=== PATIENT | male | born 1995 | race Caucasian/White ===

== ENCOUNTER 2021-02-05 08:26 | Emergency (ER) | payer SELFPAY ==
[2021-02-05] MEDS ORDERED: Ketorolac 30 MG/ML SDV IVPUSH ONE (08:46)
--- NOTE | 2021-02-05 08:51 | EDM.PDOC ---
ED HPI GENERAL MEDICAL PROBLEM - General Chief Complaint: Genitourinary Problem Stated Complaint: UNKNOWN Time Seen by Provider: 02/05/21 08:47 Source of Information: Reports: Patient History Limitations: Reports: No Limitations - History of Present Illness INITIAL COMMENTS - FREE TEXT/NARRATIVE: Patient is a 25-year-old male who presents today for testicular pain. Patient received urgent care and was sent here because he told he may have testicular torsion. Patient says he woke up this morning with intense pain in his left testicle. Patient denied any injuries or trauma to his abdomen or testicle. Patient has not been sexually active for the past month. Patient has before this he was only active with 1 person and not use protection. Patient denies any discharge from his penis. Patient denies any swelling or redness. Patient denies any nausea vomiting or other complaints. retention Pain Score (Numeric/FACES): 9 - Related Data Allergies Allergy/AdvReac Type Severity Reaction Status Date / Time No Known Allergies Allergy Verified 02/05/21 08:29 Home Meds: Home Meds . [No Known Home Meds] 02/05/21 [History] Past Medical History - Past Health History Medical/Surgical History: Denies Medical/Surgical History - Infectious Disease History Infectious Disease History: Reports: None Social & Family History - Family History Family Medical History: No Pertinent Family History - Tobacco Use Tobacco Use Status *Q: Current Every Day Tobacco User Years of Tobacco use: 10 Packs/Tins Daily: 1.5 - Recreational Drug Use Recreational Drug Use: No ED ROS GENERAL - Review of Systems Review Of Systems: See Below Constitutional: Reports: No Symptoms HEENT: Reports: No Symptoms Respiratory: Reports: No Symptoms Cardiovascular: Reports: No Symptoms Endocrine: Reports: No Symptoms GI/Abdominal: Reports: No Symptoms : Reports: Pain Musculoskeletal: Reports: No Symptoms Skin: Reports: No Symptoms Neurological: Reports: No Symptoms Psychiatric: Reports: No Symptoms Hematologic/Lymphatic: Reports: No Symptoms Immunologic: Reports: No Symptoms ED EXAM, RENAL/ - Physical Exam Exam: See Below Exam Limited By: No Limitations General Appearance: Alert, WD/WN Respiratory/Chest: No Respiratory Distress, Lungs Clear Cardiovascular: Normal Peripheral Pulses, Regular Rate, Rhythm GI/Abdominal: Normal Bowel Sounds, Soft, Non-Tender (Male) Exam: No Hernia, Testicular Tenderness (L). No: Scrotal Swelling, Testicular Mass, Testicular Tenderness (R) Extremities: Normal Inspection Neurological: Alert, Oriented, Normal Cognition, Normal Gait Course - Vital Signs Last Recorded V/S: Last Vital Signs Temp 97.6 F 02/05/21 08:30 Pulse 87 02/05/21 10:34 Resp 17 02/05/21 10:34 BP 142/74 H 02/05/21 10:34 Pulse Ox 100 02/05/21 10:34 - Orders/Labs/Meds Orders: Active Orders 24 hr Category Date Time Status Retroperitoneal Ltd [US] Stat Exams 02/05/21 09:09 Taken Scrotum and Contents [US] Stat Exams 02/05/21 09:20 Taken CHLAMYDIA AND GONORRHEA BY TMA Stat Lab 02/05/21 08:35 Received Labs: Laboratory Tests 02/05/21 02/05/21 02/05/21 Range/Units 08:30 08:30 09:07 WBC 7.43 (4.0-11.0) K/uL RBC 5.26 (4.50-5.90) M/uL Hgb 15.9 (13.0-17.0) g/dL Hct 46.6 (38.0-50.0) % MCV 88.6 (80.0-98.0) fL MCH 30.2 (27.0-32.0) pg MCHC 34.1 (31.0-37.0) g/dL RDW Std Deviation 42.8 (28.0-62.0) fl RDW Coeff of Kathia 13 (11.0-15.0) % Plt Count 259 (150-400) K/uL MPV 10.30 (7.40-12.00) fL Neut % (Auto) 52.3 (48.0-80.0) % Lymph % (Auto) 39.2 (16.0-40.0) % [place] % (Auto) 6.7 (0.0-15.0) % Eos % (Auto) 1.5 (0.0-7.0) % Baso % (Auto) 0.3 (0.0-1.5) % Neut # (Auto) 3.9 (1.4-5.7) K/uL Lymph # (Auto) 2.9 H (0.6-2.4) K/uL [place] # (Auto) 0.5 (0.0-0.8) K/uL Eos # (Auto) 0.1 (0.0-0.7) K/uL Baso # (Auto) 0.0 (0.0-0.1) K/uL Nucleated RBC % 0.0 /100WBC Nucleated RBCs # 0 K/uL Lactate 1.2 (0.20-2.00) mmol/L Sodium 140 (136-148) mmol/L Potassium 4.1 (3.5-5.1) mmol/L Chloride 103 (98-107) mmol/L Carbon Dioxide 28.7 (21.0-32.0) mmol/L BUN 15 (7.0-18.0) mg/dL Creatinine 1.6 H (0.8-1.3) mg/dL Est Cr Clr Drug Dosing 69.96 mL/min Estimated GFR (MDRD) 52.5 ml/min Glucose 134 H (74-106) mg/dL Calcium 9.3 (8.5-10.1) mg/dL Urine Color Urine Appearance Urine pH (5.0-8.0) Ur Specific Laura (1.001-1.035) Urine Protein (NEGATIVE) mg/dL Urine Glucose (UA) (NEGATIVE) mg/dL Urine Ketones (NEGATIVE) mg/dL Urine Occult Blood (NEGATIVE) Urine Nitrite (NEGATIVE) Urine Bilirubin (NEGATIVE) Urine Urobilinogen (<2.0) EU/dL Ur Leukocyte Esterase (NEGATIVE) Urine RBC (0-2/HPF) Urine WBC (0-5/HPF) Ur Epithelial Cells (NONE-FEW) Urine Bacteria (NEGATIVE) Urine Mucus (NONE-MOD) 02/05/21 Range/Units 10:26 WBC (4.0-11.0) K/uL RBC (4.50-5.90) M/uL Hgb (13.0-17.0) g/dL Hct (38.0-50.0) % MCV (80.0-98.0) fL MCH (27.0-32.0) pg MCHC (31.0-37.0) g/dL RDW Std Deviation (28.0-62.0) fl RDW Coeff of Kathia (11.0-15.0) % Plt Count (150-400) K/uL MPV (7.40-12.00) fL Neut % (Auto) (48.0-80.0) % Lymph % (Auto) (16.0-40.0) % [place] % (Auto) (0.0-15.0) % Eos % (Auto) (0.0-7.0) % Baso % (Auto) (0.0-1.5) % Neut # (Auto) (1.4-5.7) K/uL Lymph # (Auto) (0.6-2.4) K/uL [place] # (Auto) (0.0-0.8) K/uL Eos # (Auto) (0.0-0.7) K/uL Baso # (Auto) (0.0-0.1) K/uL Nucleated RBC % /100WBC Nucleated RBCs # K/uL Lactate (0.20-2.00) mmol/L Sodium (136-148) mmol/L Potassium (3.5-5.1) mmol/L Chloride (98-107) mmol/L Carbon Dioxide (21.0-32.0) mmol/L BUN (7.0-18.0) mg/dL Creatinine (0.8-1.3) mg/dL Est Cr Clr Drug Dosing mL/min Estimated GFR (MDRD) ml/min Glucose (74-106) mg/dL Calcium (8.5-10.1) mg/dL Urine Color MERARI Urine Appearance CLOUDY Urine pH 6.5 (5.0-8.0) Ur Specific Laura 1.025 (1.001-1.035) Urine Protein 100 H (NEGATIVE) mg/dL Urine Glucose (UA) NEGATIVE (NEGATIVE) mg/dL Urine Ketones TRACE H (NEGATIVE) mg/dL Urine Occult Blood LARGE H (NEGATIVE) Urine Nitrite NEGATIVE (NEGATIVE) Urine Bilirubin SMALL H (NEGATIVE) Urine Urobilinogen 1.0 (<2.0) EU/dL Ur Leukocyte Esterase TRACE H (NEGATIVE) Urine RBC 80-90 (0-2/HPF) Urine WBC 5-10 (0-5/HPF) Ur Epithelial Cells FEW (NONE-FEW) Urine Bacteria FEW (NEGATIVE) Urine Mucus LIGHT (NONE-MOD) Meds: Medications Discontinued Medications Generic Name Dose Route Start Last Admin Trade Name Freq PRN Reason Stop Dose Admin Ketorolac Tromethamine 30 mg 02/05/21 08:46 02/05/21 08:58 Ketorolac 30 Mg/Ml Sdv IVPUSH 02/05/21 08:47 30 mg ONETIME ONE Administration - Re-Assessments/Exams Free Text/Narrative Re-Assessment/Exam: 02/05/21 11:40 Patient likely had a kidney stone in the past patient pain is resolved is tolerating p.o. patient some hydro on the left of the ultrasound. Patient creatinine 1.6 we will continue to hydrate patient have patient follow-up with urology as outpatient. Departure - Departure Time of Disposition: 11:41 Disposition: Home, Self-Care 01 Condition: Good Clinical Impression: Kidney stone - Discharge Information *PRESCRIPTION DRUG MONITORING PROGRAM REVIEWED*: Not Applicable *COPY OF PRESCRIPTION DRUG MONITORING REPORT IN PATIENT RICHARD: Not Applicable Instructions: Kidney Stones, [id number] Forms: ED Department Discharge Additional Instructions: The following information is given to patients seen in the emergency department who are being discharged to home. This information is to outline your options for follow-up care. We provide all patients seen in our emergency department with a follow-up referral. The need for follow-up, as well as the timing and circumstances, are variable depending upon the specifics of your emergency department visit. If you don't have a primary care physician on staff, we will provide you with a referral. We always advise you to contact your personal physician following an emergency department visit to inform them of the circumstance of the visit and for follow-up with them and/or the need for any referrals to a consulting spec ialist. The emergency department will also refer you to a specialist when appropriate. This referral assures that you have the opportunity for follow-up care with a specialist. All of these measure are taken in an effort to provide you with optimal care, which includes your follow-up. Under all circumstances we always encourage you to contact your private physician who remains a resource for coordinating your care. When calling for follow-up care, please make the office aware that this follow-up is from your recent emergency room visit. If for any reason you are refused follow-up, please contact the [facility] Emergency Department at and asked to speak to the emergency department charge nurse. Please follow up with your primary care physician. If you do not have a primary care physician, see below: [facility] - Urology [address] [place] [id number] Please follow-up with urology as outpatient for your kidney stones. If you have any increased blood in your urine difficulty urinating or increased pain please return to the ED immediately. Sepsis Event Note (ED) - Evaluation Sepsis Screening Result: No Definite Risk - Focused Exam Vital Signs: Vital Signs Temp Pulse Resp BP Pulse Ox 02/05/21 10:34 87 17 142/74 H 100 02/05/21 10:04 81 18 139/76 99 02/05/21 08:30 97.6 F 64 17 145/117 H 98 - My Orders Last 24 Hours: My Active Orders 02/05/21 08:35 CHLAMYDIA AND GONORRHEA BY TMA Stat 02/05/21 09:09 Retroperitoneal Ltd [US] Stat 02/05/21 09:20 Scrotum and Contents [US] Stat - Assessment/Plan Last 24 Hours: My Active Orders 02/05/21 08:35 CHLAMYDIA AND GONORRHEA BY TMA Stat 02/05/21 09:09 Retroperitoneal Ltd [US] Stat 02/05/21 09:20 Scrotum and Contents [US] Stat Plan: Patient is a 25-year-old male who presents today for testicular pain. On exam was able to maneuver and palpate the testicle without much distress and patient unlikely be torsion however will obtain ultrasound to rule out possible epididymitis and will also test for STDs.
[2021-02-05 09:02] LABS: CARBON DIOXIDE,CO2 28.7 mmol/L (21.0-32.0); POTASSIUM,K 4.1 mmol/L (3.5-5.1)
--- NOTE | 2021-02-05 11:07 | US ---
INDICATION: Pain, rule out torsion. COMPARISON: None. TECHNIQUE: Logan scale imaging was performed of the scrotum. In addition color Doppler and spectral Doppler analysis was performed of the testes. FINDINGS: The right testis measures 4.7 x 2.9 x 2.2 cm in size and the left testis measures 4.8 x 2.0 x 2.6 cm. The testes demonstrate normal arterial and venous blood flow on color Doppler and spectral Doppler analysis. The testes have uniform echogenicity without evidence of a suspicious mass or area of inflammation. There is a 0.3 cm anechoic cyst in the right epididymal head. The epididymis otherwise appears normal bilaterally. There are bilateral varicoceles, more prominent on the left. Small bilateral hydroceles. IMPRESSION: 1. Normal appearance and vascularity of the testicles. No evidence of testicular torsion. 2. Subcentimeter right epididymal head cyst. 3. Bilateral varicoceles, more prominent on the left. 4. Small bilateral hydroceles. Dictated by Marily Levine MD @ Feb 05 2021 11:01AM Signed by Dr. Marily Levine @ Feb 05 2021 11:06AM
--- NOTE | 2021-02-05 11:47 | US ---
EXAM DATE: 02/05/21 PATIENT'S AGE: 25 Patient: ANDREW BELL [facility] . Site : 1995 Study: US-Testicle -02/05/2021 10:17:29 AM Ordering Physician: Antony Pereyra Final Report: INDICATION: Pain, rule out torsion. COMPARISON: None. TECHNIQUE: Logan scale imaging was performed of the scrotum. In addition color Doppler and spectral Doppler analysis was performed of the testes. FINDINGS: The right testis measures 4.7 x 2.9 x 2.2 cm in size and the left testis measures 4.8 x 2.0 x 2.6 cm. The testes demonstrate normal arterial and venous blood flow on color Doppler and spectral Doppler analysis. The testes have uniform echogenicity without evidence of a suspicious mass or area of inflammation. There is a 0.3 cm anechoic cyst in the right epididymal head. The epididymis otherwise appears normal bilaterally. There are bilateral varicoceles, more prominent on the left. Small bilateral hydroceles. IMPRESSION: 1. Normal appearance and vascularity of the testicles. No evidence of testicular torsion. 2. Subcentimeter right epididymal head cyst. 3. Bilateral varicoceles, more prominent on the left. 4. Small bilateral hydroceles. Dictated by Marily Levine MD @ Feb 05 2021 11:01AM Signed by: Marily Levine MD @02/05/2021 11:06:00 AM (Electronic Signature) Report Signed by Proxy. JOSE
--- NOTE | 2021-02-05 11:54 | US ---
EXAM DATE: 02/05/21 PATIENT'S AGE: 25 Patient: BRIT MORALES Facility: [facility] Site . Site : 1995 Study: US-Abdomen -02/05/2021 10:43:16 AM Ordering Physician: POP CRUZ Final Report: CLINICAL HISTORY: Check for hydronephrosis. COMPARISON: None. TECHNIQUE: Logan scale and color Doppler images were acquired of the kidneys. FINDINGS: The right kidney measures 10.0cm in length and the left kidney measures 11.0cm in length. The renal cortex is normal in thickness. There is mild left hydronephrosis. No right hydronephrosis. No renal calculus or mass identified. IMPRESSION: 1. Mild left hydronephrosis. 2. Exam otherwise unremarkable. Dictated by Marily Levine MD @ Feb 05 2021 11:06AM Signed by: Marily Levine MD @02/05/2021 11:09:15 AM (Electronic Signature) Report Signed by Proxy. JOSE
[2021-02-06 12:06] LABS: C.TRACHOMATIS BY TMA Negative (Negative); N.GONORRHOEAE BY TMA Negative (Negative)
== END 2021-02-05 12:06 | disposition home or self-care (01) ==
LOC: MW.ED 08:26
DX: N13.2 Hydronephrosis with renal and ureteral calculous obstruction (principal); N50.812 Left testicular pain; Z72.0 Tobacco use
CPT/HCPCS: 36415; 76775; 76870; 80048; 81001; 83605; 85025; 87491; 87591; 93976; 96374; 99284; J1885; 99283